=== PATIENT | male | born 1965 | race Caucasian/White ===

== ENCOUNTER 2018-02-20 12:25 | Emergency (ER) | payer SELFPAY ==
[~2018-02-20] VITALS: Ht 180.3 cm; Wt 82.0 kg
[~2018-02-20 12:25] MED LIST: LEVO50TA4 PO
[2018-02-20 12:37] VITALS: BP 130/74; PULSE 76; RESP 14; TEMP 98.5; O2SAT 99
[2018-02-20] MEDS ORDERED: BACT800T5 PO (14:04)
--- NOTE | 2018-02-20 14:04 | PD ---
HPI Chief Complaint: Skin Problem Time Seen by Provider: 13:35 Travel History International Travel<30 days: No Contact w/Intl Traveler<30days: No Traveled to known affect area: No History of Present Illness HPI 52-year-old male presents to the emergency room for evaluation of an abscess to his right axilla that started about 1 week ago. Patient states it started as a large abscess in his right armpit that he popped. After draining, he noticed several other smaller lesions popping up around the area. He has not taken anything or done anything for his symptoms. He did stop using his deodorant. He denies significant fever, chills. No history of the same. Denies any chronic medical conditions or daily medications. PFSH Past Medical History Cancer: No Cardiovascular Problems: No Endocrine: No Genitourinary: No Immune Disorder: No Musculoskeletal: No Neurologic: No Psychiatric: No Reproductive: No Respiratory: No Past Surgical History Body Medical Devices: BRUNA LEFT FEMUR Social History Alcohol Use: Yes (12 PACK A DAY -NONE IN 1 WEEK WAS IN DETOX) Tobacco Use: Yes (3/4 PPD X 32 YEARS) Substance Use: Yes (NONE FOR SEVERAL YEARS) Allergies-Medications (Allergen,Severity, Reaction): Coded Allergies: ibuprofen (Unverified Adverse Reaction, Intermediate, GI UPSET, 02/20/18) Reported Meds & Prescriptions Reported Meds & Active Scripts Active Levothyroxine 50 mcg (Levothyroxine Sodium) 50 Mcg Tab 50 Mcg PO DAILY Review of Systems Except as stated in HPI: all other systems reviewed are Neg Physical Exam Narrative GENERAL: Well-nourished, well-developed male in no acute distress. Afebrile. Ambulatory. SKIN: Focused skin assessment warm/dry. There is an indurated area in the right axilla which measures about 3 cm in diameter. It is fluctuant but there is no pointing or drainage. There is a zone of inflammation around it but no lymphangitis. Multiple surrounding, smaller erythematous lesions. HEAD: Normocephalic. EYES: No scleral icterus. No injection or drainage. NECK: Supple, trachea midline. No JVD or lymphadenopathy. CARDIOVASCULAR: Regular rate and rhythm without murmurs, gallops, or rubs. RESPIRATORY: Breath sounds equal bilaterally. No accessory muscle use. PSYCHIATRIC: No delusional thought processes. No hallucinations. Data Data Last Documented VS Vital Signs Date Time Temp Pulse Resp B/P (MAP) Pulse Ox O2 Delivery O2 Flow Rate FiO2 02/20/18 12:37 98.5 76 14 130/74 (92) 99 MDM Medical Decision Making Medical Screen Exam Complete: Yes Emergency Medical Condition: Yes Medical Record Reviewed: Yes Differential Diagnosis Abscess, folliculitis, hidradenitis suppurativa, MRSA Narrative Course 52-year-old male presents to the emergency room for evaluation of an abscess to the right axilla that started several days ago. Patient popped the initial abscess and it has since spread. Denies any fevers. Physical exam reveals multiple tiny satellite lesions around a 2-3 cm area of induration with fluctuance. No lymphangitis. No obvious cellulitis. Abscess drained, see procedure note for details. Patient discharged with Bactrim and told to follow- up with primary care physician or return to the emergency room for worsening symptoms. He understands and agrees to plan. Procedures Procedure Narrative INCISION AND DRAINAGE OF ABSCESS: The area was prepped and was sterilely draped. A subcutaneous wheal of 1% lidocaine with epinephrine with a total number 4 mL was used to anesthetize the area properly. A number 11 scalpel was used to make a 1 cm incision across the area of the abscess. The abscess was drained, complex loculations were broken down, and irrigated with normal saline. Sterile dressing applied. Diagnosis Primary Impression: Abscess of right axilla Referrals: Primary Care Physician Additional Instructions: Rest and drink plenty of fluids. Take Bactrim as directed, until gone. Follow up with a primary care physician. Return to emergency room for worsening symptoms, as discussed. Med/Other Pt SpecificInfo: Prescription(s) given Disposition: 01 DISCHARGE HOME Condition: Stable Bernadine Robles February 20, 2018 14:04
== END 2018-02-20 14:42 | disposition home or self-care (01) ==
LOC: NEPK 12:25
DX: L02.411 Cutaneous abscess of right axilla (principal); F17.210 Nicotine dependence, cigarettes, uncomplicated; Z88.6 Allergy status to analgesic agent
CPT/HCPCS: 10060